=== PATIENT | female | born 1975 | race Caucasian/White ===

== ENCOUNTER 2016-09-19 12:40 | Emergency (ER) | payer OTHER ==
[~2016-09-19] VITALS: Ht 160 cm; Wt 77.3 kg
[2016-09-19 12:46] VITALS: BP 115/79; PULSE 85; RESP 18; O2SAT 100
--- NOTE | 2016-09-19 13:24 | ED.REPORT ---
HPI-Extremity Problem Upper Date of Service September 19, 2016 ED Provider: History of Present Illness: fingers caught in machine hoist today around 11 today. happened at storage unit. up to date on tdap. left fingers injured. right hand dominant. old engine hoist. hand is numb 02/08. last ate at 930 had a muffin at 1130 Nursing Notes Stated Complaint: LEFT HAND INJURY/LACERATION Chief Complaint: Extremity Trauma Nursing Notes Reviewed: Yes Allergies: Coded Allergies: No Known Allergies (Unverified , 09/19/16) General Time Seen by MD: 13:23 Chief Complaint Finger injury left 3, Finger injury left 4 Hx Obtained From: Patient Onset Occurred: Just prior to arrival Symptom Duration: Since onset Caused by: Accidental Context: Occurred at: Home injury Location: : Finger left 3: Finger left 4 Past Medical History Past Medical History On chronic opiods for chronic neck/back pain, morhine 15 mg bid and oxycodone 5 mg Qid. on them for 5 years per her report Denies: Asthma, Diabetes mellitus Past Surgical History spine surgeries Smoking History Former Smoker (quit 10 years ago 09/19/2016) Social History Alcohol Use: Denies alcohol use Drug Use: Denies drug use Occupation lives with and 3 children. 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 Ambulatory Status Independent Review of Systems Basic Review of Systems Eyes: Vision NL, No discharge : No dysuria, No frequency Psychiatric: Normal thought content Physical Exam Initial Vital Signs Vital Signs (First) Date Time Temp Pulse Resp B/P Pulse Ox O2 Delivery O2 Flow Rate FiO2 09/19/16 12:46 36.5 85 18 115/79 100 Room Air Initial VS: Reviewed, Vital signs normal General/Constitutional: Well-developed, Well-nourished Head / Eyes: Atraumatic, Normocephalic, PERRL ENT: Mucous membranes moist, Conjunctiva normal, No scleral icterus Neck: Supple, Non-tender, Full range of motion Respiratory: Breath sounds normal, Clear to auscultation, No respiratory distress Cardiovascular: Regular rate & rhythm, Heart sounds normal, Intact distal pulses Abdomen / GI: Soft, Non-tender, No guarding, No rebound, No distention Back: No CVA tenderness Lymphatic: No lymphadenopathy Lower Extremities: Vascular intact, Neuro intact, No swelling, No tenderness Skin: Warm, Dry, No cyanosis Neurologic: Alert, Oriented, Nonfocal Psychiatric: Mood/affect normal, Behavior normal, Normal thought content General/Constitutional: Awake, Alert, No acute distress, Well appearing, Well developed, Well hydrated Respiratory / Chest: Atraumatic, Breath sounds NL, Breath sounds = bilat, No respiratory distress Cardiovascular: Heart rate NL, Regular rhythm, Heart sounds NL, No gallop Upper Extremity / MS: Atraumatic, Inspection NL, Full range of motion left hand 3rd and 4th finger with lacerations. sensation intact distally, full range of motion but with discomfort. Digital block provided after exam with good results. cap refill less than 3 sec. Interpretation & Diagnostics X-Ray Interpretation Xray Interpretation: PROCEDURE: X-RAY LEFT HAND, MINIMUM THREE VIEWS ([id number]) INDICATIONS: injury to fingers TECHNIQUE: 3 views of the hand(s) acquired. COMPARISON: None. FINDINGS: Bones: Nondisplaced, comminuted fourth middle phalange fracture. Carpal bones are normally aligned. No suspicious bony lesions. Soft tissues: No suspicious soft tissue calcifications. IMPRESSION: Fourth middle phalange fracture. Dictated by: Pauline Parker MD, PhD on 09/19/2016 at 13:37 Approved by: Pauline Parker MD, PhD on 09/19/2016 at 13:38 Procedures Procedure Notes: left 3rd finger laceration has 2 sutures. Left 4th finger has 3 sutures Laceration Management Time: 14:10 Procedure Performed by: Allied health pract Consent / Setup / Site Prep: Informed consent provided, Consent from patient , Hand hygiene observed, Stand sterile technique Location of Wound: left 3 and 4th finger Wound Length: 1 cm Local Anesthesia: Lidocaine 1% Digital Block: Yes Digit Involved: Middle finger left, Ring finger left Wound Preparation: Normal saline Debridement: None Irrigation: 250 cc Repair Skin: ___ O (5), Nylon # Sutures - Skin: 3 Closure Layers: 1 Suture Technique: Simple Post-Procedure / Complications: Antibiotic oint applied, Dressing applied, No complications, Condition improved, Tolerated procedure well, Patient stable Re-Eval/Medical Decision Med Decision/Clinical Course patient with injury to left hand, presents to the ER for evualation. X-ray does indicate a fracture on the 4th finger. As this is likely an open fracture, consult with Dr. Rowland and Dr. Xiao. Patient is up to date on tdap. Given an injection of rocephin. Wounds are extensively washed and repaired. Finger is splinted. Patient to be followed by ortho, Dr. Xiao. Patient given a prescription for keflex. As she is on chronic opiate medication she is provided a prescription for percocet 5/325 4 times a day for 14 days. Patient is following with pain management on Tuesday. Advised to call them on Tuesday. Discharge & Departure Impression: Primary Impression: Finger fracture, left Encounter type: initial encounter Fracture type: open Qualified Code: S62.609B - Fracture of unspecified phalanx of unspecified finger, initial encounter for open fracture Additional Impression: Laceration Disposition: Home Patient Instructions: Finger Fracture (ED), Laceration (ED) Additional Instructions: The x-ray indicates a fracture on your 4th left finger. It is in good alignment , The lacerations have been repaired. You received an injection of rocehin in the ER. Your Tdap is up to date. Use percocet 5/325 up to 4 times a day for pain control. Can also use ibuprofen 800 mg up to 3 times a day as needed. Please call your pain management clinic tomorrow and let them know what has happened. Please call Dr. Xiao for follow up this week. Continue with keflex 500 mg 4 times a day for 10 days. Keep the finger splinted until you are seen by ortho. Referrals: Chuck Crowe DO (PCP) Kofi Xiao MD EDSupervising Provider for [facility]: Farhan Rowland MD copies to: Kofi Xiao MD; Chuck Crowe Sue ARNP September 19, 2016 13:24
[2016-09-19] MEDS ORDERED: Lidocaine 1% 50 mL Inj NERVEBLOCK ONE (13:35)
--- NOTE | 2016-09-19 13:39 | DRSVH ---
PROCEDURE: X-RAY LEFT HAND, MINIMUM THREE VIEWS ([id number]) INDICATIONS: injury to fingers TECHNIQUE: 3 views of the hand(s) acquired. COMPARISON: None. FINDINGS: Bones: Nondisplaced, comminuted fourth middle phalange fracture. Carpal bones are normally aligned. No suspicious bony lesions. Soft tissues: No suspicious soft tissue calcifications. IMPRESSION: Fourth middle phalange fracture. Dictated by: Pauline Parker MD, PhD on 09/19/2016 at 13:37 Approved by: Pauline Parker MD, PhD on 09/19/2016 at 13:38
[2016-09-19] MEDS ORDERED: cefTRIAXone Inj 1,000 MG, Lidocaine PF 1% Inj 2.1 ML in Syringe 0 EACH IM ONE (14:15)
[2016-09-19 14:52] VITALS: BP 108/69; PULSE 86; RESP 16; O2SAT 96
[2016-09-19 15:14] VITALS: BP 108/69; PULSE 86; RESP 16; O2SAT 96
== END 2016-09-19 14:52 | disposition home or self-care (01) ==
LOC: SED 12:40
DX: S62.655B Nondisplaced fracture of middle phalanx of left ring finger, initial encounter for open fracture (principal); S61.212A Laceration without foreign body of right middle finger without damage to nail, initial encounter; W24.0XXA Contact with lifting devices, not elsewhere classified, initial encounter; Y93.9 Activity, unspecified; Y92.89 Other specified places as the place of occurrence of the external cause; Y99.8 Other external cause status; Z87.891 Personal history of nicotine dependence
CPT/HCPCS: 12001; 73130; 96372; 99284; J0696